=== PATIENT | female | born 1960 | race Caucasian/White ===

== ENCOUNTER → 2025-02-08 13:25 | Outpatient (REF) | payer MEDICARE, OTHER, SELFPAY | LOC: HWWDC 13:25 | PROVIDERS: ATTENDING PHYSICIAN Physician Assistant Medical | DX: Z12.31 Encounter for screening mammogram for malignant neoplasm of breast (principal) | CPT/HCPCS: 77063; 77067 ==

== ENCOUNTER 2025-04-24 15:11 | Emergency (ER) | payer MEDICARE, OTHER, SELFPAY ==
[2025-04-24 15:14] VITALS: BP 163/83
--- NOTE | 2025-04-24 19:19 | ED.SKININJ ---
HPI-Injury
General
Chief Complaint: Ear Problem
Source: patient
Exam Limitations: none
Time Seen by Provider: 04/24/25 18:53
History of Present Illness-Injury
Initial Injury comments:
65-year-old female presents with persistent ear discomfort and ringing in her ear over the past week. She was seen by her family doctor [facility] who initially prescribed Augmentin for an internal ear infection. She was on this for about 3 days without
any significant relief and she saw the ear and nose and throat PA who changed her to clarithromycin and Flonase. She still notes ringing. She at one point was told she may need her eardrum punctured for this to get better. She is interested in
getting her eardrum punctured here. She has a history of. No neck pain. No chest pain or shortness of breath.
Phy Exam
Physical Exam
Physical Exam:
General: Well appearing female, NAD
HEENT: NC/AT Right TM bulging slightly with small effusion inferiorly neck is supple no adenopathy
Heart: RRR, no murmurs
Lungs; CTA bilaterally
Extremities: No cyanosis
Neurologic exam: No nystagmus alert and oriented normal gait no facial asymmetry
Course
Orders/Labs/Results
Orders:
Orders
04/24/25 19:16
Dexamethasone [Decadron] 10 mg PO NOW STA
Vital Signs
Initial and Last Documented VS:
Initial Vital Signs
Temp Pulse Resp BP Pulse Ox
97.8 F 85 18 163/83 98
04/24/25 15:14 04/24/25 15:14 04/24/25 15:14 04/24/25 15:14 04/24/25 15:14
Last Documented Vital Signs
Temp Pulse Resp BP Pulse Ox
97.8 F 85 18 163/83 98
04/24/25 15:14 04/24/25 15:14 04/24/25 15:14 04/24/25 15:14 04/24/25 15:14
MDM/Problems Addressed
Differential Diagnosis Includes:
Right ear pain with effusion. On antibiotics. Question otitis media allergy mediated versus viral mediated versus bacterial. Will add a steroid to help with inflammation. No need to change antibiotics. This point no emergent indication to
perforate the patient's eardrum as she requested. She does have an appoint with ENT in about 36 hours for a follow-up.
*Pulse Oximetry
SaO2: 98
Oxygen Mode of Delivery: Room air
Patient hypoxic: no
*Critical Care Note
Total Time (30-74mins, 75-104mins- exclusive of procedures): Not Applicable
ED Attending Note
-
Portions of this chart may have been created with voice recognition software.� Occasional wrong word or��sound alike� substitutions may have occurred due to the inherent limitations of voice recognition software.
Discharge Plan
Departure
Patient Disposition: Home (Routine Discharge)
Date of Disposition: 04/24/25
Time of Disposition: :
Patient with high blood pressure during this ER visit?: No
Discharge Problem:
Otitis media
Instructions: Serous Otitis Media (DC)
Prescriptions:
New
prednisone 10 mg Tablet
See Rx Instructions .ROUTE .COMPLEX Qty: 30 0RF
Rx Instructions:
Take By Mouth:
40 mg daily x3 days, 30 mg daily x3 days,
20 mg daily x3 days, 10 mg daily x3 days.
Referrals:
Sukh Lopez DO [Family Provider, Family Practice]
Activity Restrictions/Additional Instructions:
Continue current antibiotics. Add steroid as directed. Follow-up with ENT as planned
Interventions
Interventions:
*Risk Screen - Suicide Last Done: 04/24/25 15:14
*General Assessment Last Done: 04/24/25 15:14
Discharge Date and Time
Print Language: ALBANIAN
[2025-04-24] MEDS: DECADRON 10 MG PO (19:21)
== END 2025-04-24 19:31 | disposition home or self-care (01) ==
LOC: EMR 15:11
PROVIDERS: EMERGENCY PHYSICIAN Emergency Medicine; FAMILY PHYSICIAN Family Medicine
DX: H66.91 Otitis media, unspecified, right ear (principal)
CPT/HCPCS: 99283